=== PATIENT | male | born 1955 | race Caucasian/White ===

== ENCOUNTER → 2024-02-13 | Outpatient (CLI) | payer MEDICARE, BC, SELFPAY ==
[2024-02-13 08:59] LABS: Alanine Aminotransferase 73 U/L (10-49); Albumin, Serum 4.8 gm/dL (3.4-4.8); Alkaline Phosphatase 59 U/L (46-116); Aspartate Amino Transferase 53 U/L (0-34); Bilirubin,Direct 0.4 mg/dL (0.0-0.3); Bilirubin,Total 1.2 mg/dL (0.3-1.2); Total Protein 7.2 gm/dL (5.7-8.2)
== END | disposition home or self-care (01) ==
PROVIDERS: PCP Internal Medicine Cardiovascular Disease; Referring Provider Internal Medicine Cardiovascular Disease; Visit Provider Internal Medicine Cardiovascular Disease
DX: I10 Essential (primary) hypertension (principal); E78.5 Hyperlipidemia, unspecified
CPT/HCPCS: 36415; 80076

== ENCOUNTER → 2024-08-12 | Outpatient (CLI) | payer MEDICARE, BC, SELFPAY ==
[2024-08-12 11:12] LABS: Cardiac Risk Estimate 2.4 RATIO (4.0-6.7); Cholesterol 141 mg/dL (132-200); HDL Cholesterol 58 mg/dL (40-60); LDL Cholesterol,Calculated 67 mg/dL (0-130); Triglycerides 79 mg/dL (30-150)
== END | disposition home or self-care (01) ==
PROVIDERS: PCP Family Medicine; Referring Provider Internal Medicine Cardiovascular Disease; Visit Provider Internal Medicine Cardiovascular Disease
DX: I10 Essential (primary) hypertension (principal); E78.5 Hyperlipidemia, unspecified
CPT/HCPCS: 36415; 80061

== ENCOUNTER → 2025-02-13 | Outpatient (CLI) | payer MEDICARE, BC, SELFPAY ==
[2025-02-13 11:12] LABS: Alanine Aminotransferase 95 U/L (10-49); Albumin, Serum 4.7 gm/dL (3.4-4.8); Alkaline Phosphatase 66 U/L (46-116); Aspartate Amino Transferase 132 U/L (0-34); Bilirubin,Direct 0.6 mg/dL (0.0-0.3); Bilirubin,Total 1.3 mg/dL (0.3-1.2); Total Protein 6.9 gm/dL (5.7-8.2)
== END | disposition home or self-care (01) ==
LOC: COPL 08:58
PROVIDERS: PCP Family Medicine; Referring Provider Internal Medicine Cardiovascular Disease; Visit Provider Internal Medicine Cardiovascular Disease
DX: E78.5 Hyperlipidemia, unspecified (principal); I10 Essential (primary) hypertension
CPT/HCPCS: 36415; 80076